=== PATIENT | male | born 1970 | race Caucasian/White ===

== ENCOUNTER 2017-04-16 14:33 | Emergency (ER) | payer SELFPAY ==
[2017-04-16 14:45] VITALS: BP 138/94; PULSE 100; RESP 16; TEMP 98.1; O2SAT 97
--- NOTE | 2017-04-16 14:58 | EDPHY ---
H & P Stated Complaint: shiela pt new to [facility] wants meds Time Seen by Provider: 04/16/17 14:57 HPI/ROS: CHIEF COMPLAINT: Requesting referral to outpatient psychiatric care HISTORY OF PRESENT ILLNESS: The patient presents to the emergency department requesting referral to outpatient psychiatric care. The patient has newly arrived in the ED state from [place]. The patient is currently on medications for schizoaffective disorder and bipolar mood disorder. The patient denies suicidal or homicidal ideation. The patient is currently homeless. The patient is currently traveling to [place]. The patient also denies acute complaints of fever, cough or congestion. He did have an episode of vomiting 2 days ago. REVIEW OF SYSTEMS: A comprehensive 10 point review of systems is otherwise negative aside from elements mentioned in the history of present illness. Source: Patient Exam Limitations: No limitations - Personal History Current Tetanus/Diphtheria Vaccine: Unsure Current Tetanus Diphtheria and Acellular Pertussis (TDAP): Unsure - Medical/Surgical History Hx Asthma: No Hx Chronic Respiratory Disease: No Hx Diabetes: No Hx Cardiac Disease: No Hx Renal Disease: No Hx Cirrhosis: No Hx Alcoholism: No Hx HIV/AIDS: No Hx Splenectomy or Spleen Trauma: No Other PMH: bipolar depression schizophrenia - Social History Smoking Status: Never smoked - Physical Exam Exam: General Appearance: Alert, no distress Eyes: Pupils equal and round no pallor or injection ENT, Mouth: Mucous membranes moist Respiratory: There are no retractions, lungs are clear to auscultation Cardiovascular: Regular rate and rhythm Gastrointestinal: Nontender, normal bowel sounds Neurological: A&O, normal motor function, normal sensory exam, normal cranial nerves Skin: Warm and dry, no rashes Musculoskeletal: Neck is supple nontender Extremities: symmetrical, full range of motion Psychiatric: Alert and oriented x3, patient reports symptoms of chronic depression. The patient denies suicidal/homicidal ideation. Constitutional: Initial Vital Signs Temperature (C) 36.7 C 04/16/17 14:42 Heart Rate 100 04/16/17 14:42 Respiratory Rate 16 04/16/17 14:42 Blood Pressure 138/94 H 04/16/17 14:42 O2 Sat (%) 97 04/16/17 14:42 O2 Delivery Mode Room Air Medical Decision Making ED Course/Re-evaluation: The patient does not meet criteria for 72 hour mental health hold. The patient currently has a several week supply of his regular psychiatric medications which include clozaril. The patient would like to go to the walk-in clinic at [facility]. We have contacted [facility] in are able to see him this afternoon. The patient will be transferred there via taxi cab. Differential Diagnosis: Differential diagnosis considered includes suicidal ideation, psychosis, schizophrenia, depression Departure - Departure Disposition: Home, Routine, Self-Care Clinical Impression: Schizophrenia Condition: Good Instructions: Schizophrenia (ED) Additional Instructions: 1. Please follow-up with the mental health resources provided in the ED today. 2. [facility] does operate a 24/ psychiatric crisis unit located at [address] [place] [address]. The telephone number for the 24 hour crisis center is [phone]. 3. Please return to the ED if you are feeling suicidal, having thoughts of harming yourself/others or should you feel unsafe or have worsening symptoms.
== END 2017-04-16 15:47 | disposition home or self-care (01) ==
DX: F20.9 Schizophrenia, unspecified (principal); F31.9 Bipolar disorder, unspecified

== ENCOUNTER 2017-04-19 10:27 | Inpatient (IN) | payer OTHER, MEDICAID ==
[2017-04-19 11:01] LABS: % IMMATURE GRANULYOCYTES 0.3 % (0.0-1.1); ABSOLUTE IMMATURE GRANULOCYTES 0.04 10^3/uL (0.00-0.10); ADD DIFF? NO; ADD MORPH? NO; ADD SCAN? NO; ATYPICAL LYMPHOCYTE FLAG 0 (0-99); FRAGMENT RBC FLAG 0 (0-99); HEMATOCRIT 42.7 % (40.0-51.0); HEMOGLOBIN 15.1 g/dL (13.7-17.5); LEFT SHIFT FLG 0 (0-99); LIPEMIA HEMOLYSIS FLAG 90 (0-99); MEAN CELL HEMOGLOBIN 30.5 pg (27.9-34.1); MEAN CELL HEMOGLOBIN CONCENTR. 35.4 g/dL (32.4-36.7); MEAN CELL VOLUME 86.3 fL (81.5-99.8); MEAN PLATELET VOLUME 9.2 fL (8.7-11.7); PLATELET CLUMPS FLAG 0 (0-99); PLATELET COUNT 253 10^3/uL (150-400); RED BLOOD CELL COUNT 4.95 10^6/uL (4.40-6.38); RED CELL DISTRIBUTION WIDTH 12.4 % (11.5-15.2)
[2017-04-19 11:23] LABS: ANION GAP 19 mEq/L (8-16); CALCIUM 9.9 mg/dL (8.5-10.4); CARBON DIOXIDE 15 mEq/l (22-31); CHLORIDE 105 mEq/L (97-110); CREATININE 0.9 mg/dL (0.7-1.3); ETHANOL SERUM < 10 mg/dL (0-10); GLOMERULAR FILTRATION RATE > 60; GLUCOSE 113 mg/dL (70-100); POTASSIUM 3.7 mEq/L (3.5-5.2); SODIUM 139 mEq/L (134-144)
[2017-04-19 12:13] LABS: SALICYLATE < 1.0 mg/dL (2.0-20.0)
--- NOTE | 2017-04-19 13:06 | EDPHY ---
H & P Stated Complaint: M1 - Personal History Current Tetanus/Diphtheria Vaccine: Unsure Current Tetanus Diphtheria and Acellular Pertussis (TDAP): Unsure - Medical/Surgical History Hx Asthma: No Hx Chronic Respiratory Disease: No Hx Diabetes: No Hx Cardiac Disease: No Hx Renal Disease: No Hx Cirrhosis: No Hx Alcoholism: No Hx HIV/AIDS: No Hx Splenectomy or Spleen Trauma: No Other PMH: bipolar depression schizophrenia - Social History Smoking Status: Never smoked Time Seen by Provider: 04/19/17 10:29 HPI/ROS: Chief complaint: Mental health hold History of present illness: This is a 46-year-old male brought to the emergency department by police with placed him on a mental health hold for suicidal ideation being gravely disabled. According to the hold patient was found on the ground, when talking with police he asked if they would kill him. Further police were concerned he was unable to care for his basic needs. On my evaluation he does state he has had thoughts of killing himself. No specific plan. He denies homicidal ideation. He denies illness or injury. Review of systems: A 10 point review of systems was obtained and other than described above was negative (Moris Bailey) Constitutional: Initial Vital Signs Temperature (C) 36.6 C 04/19/17 10:27 Heart Rate 102 H 04/19/17 10:27 Respiratory Rate 20 04/19/17 10:27 Blood Pressure 150/92 H 04/19/17 10:27 O2 Sat (%) 97 04/19/17 10:27 O2 Delivery Mode Room Air Allergies/Adverse Reactions: No Known Allergies Allergy (Unverified 04/19/17 10:49) Home Medications: Medication Instructions Recorded Clozaril (*) 04/19/17 Zoloft 50mg (*) 04/19/17 Medical Decision Making ED Course/Re-evaluation: Patient seen under the supervision of my secondary supervising physician Dr. Guy Harris. Patient is brought to the emergency department by police on a mental health hold. He is medically evaluated, bicarbonate is low, he is given something to eat and drink, bicarb is rechecked and improving. He is medically cleared for psychiatric evaluation. This is pending at time of dictation. Care of patient is turned over to Dr. Luis Eden at end of shift. (Moris Bailey ) 8:15 p.m. patient accepted at [address] Sapp. Transfer paperwork completed. (Luis Eden) Differential Diagnosis: Included but not limited to depression, bipolar, schizophrenia, substance abuse (Moris Bailey) - Data Points Laboratory Results: Laboratory Results 04/19/17 10:53 04/19/17 15:10 04/19/17 04/19/17 04/19/17 15:10 12:05 10:53 WBC RBC Hgb Hct MCV MCH MCHC RDW Plt Count MPV Neut % (Auto) Lymph % (Auto) Gladwin % (Auto) Eos % (Auto) Baso % (Auto) Nucleat RBC Rel Count Absolute Neuts (auto) Absolute Lymphs (auto) Absolute Monos (auto) Absolute Eos (auto) Absolute Basos (auto) Absolute Nucleated RBC Immature Gran % Immature Gran # Sodium 139 mEq/L mEq/L (134-144) Potassium 3.6 mEq/L mEq/L (3.5-5.2) Chloride 109 mEq/L mEq/L (97-110) Carbon Dioxide 17 mEq/l L mEq/l (22-31) Anion Gap 13 mEq/L mEq/L (8-16) BUN 18 mg/dL mg/dL (7-23) Creatinine 0.8 mg/dL mg/dL (0.7-1.3) Estimated GFR > 60 Glucose 82 mg/dL mg/dL (70-100) Calcium 8.4 mg/dL L D mg/dL (8.5-10.4) Salicylates < 1.0 mg/dL L mg/dL (2.0-20.0) Urine Opiates Screen NEGATIVE (NEGATIVE) Acetaminophen < 10 mcg/mL L mcg/mL (10.0-30.0) Urine Barbiturates NEGATIVE (NEGATIVE) Ur Phencyclidine Scrn NEGATIVE (NEGATIVE) Ur Amphetamine Screen NEGATIVE (NEGATIVE) U Benzodiazepines Scrn NON-NEGATIVE H (NEGATIVE) Urine Cocaine Screen NEGATIVE (NEGATIVE) U Marijuana (THC) Screen NON-NEGATIVE H (NEGATIVE) Ethyl Alcohol 04/19/17 04/19/17 10:53 10:53 WBC 11.72 10^3/uL H 10^3/uL (3.80-9.50) RBC 4.95 10^6/uL 10^6/uL (4.40-6.38) Hgb 15.1 g/dL g/dL (13.7-17.5) Hct 42.7 % % (40.0-51.0) MCV 86.3 fL fL (81.5-99.8) MCH 30.5 pg pg (27.9-34.1) MCHC 35.4 g/dL g/dL (32.4-36.7) RDW 12.4 % % (11.5-15.2) Plt Count 253 10^3/uL 10^3/uL (150-400) MPV 9.2 fL fL (8.7-11.7) Neut % (Auto) 81.4 % H % (39.3-74.2) Lymph % (Auto) 10.6 % L % (15.0-45.0) Gladwin % (Auto) 7.3 % % (4.5-13.0) Eos % (Auto) 0.0 % L % (0.6-7.6) Baso % (Auto) 0.4 % % (0.3-1.7) Nucleat RBC Rel Count 0.0 % % (0.0-0.2) Absolute Neuts (auto) 9.54 10^3/uL H 10^3/uL (1.70-6.50) Absolute Lymphs (auto) 1.24 10^3/uL 10^3/uL (1.00-3.00) Absolute Monos (auto) 0.85 10^3/uL H 10^3/uL (0.30-0.80) Absolute Eos (auto) 0.00 10^3/uL L 10^3/uL (0.03-0.40) Absolute Basos (auto) 0.05 10^3/uL 10^3/uL (0.02-0.10) Absolute Nucleated RBC 0.00 10^3/uL 10^3/uL (0-0.01) Immature Gran % 0.3 % % (0.0-1.1) Immature Gran # 0.04 10^3/uL 10^3/uL (0.00-0.10) Sodium 139 mEq/L mEq/L (134-144) Potassium 3.7 mEq/L mEq/L (3.5-5.2) Chloride 105 mEq/L mEq/L (97-110) Carbon Dioxide 15 mEq/l L mEq/l (22-31) Anion Gap 19 mEq/L H mEq/L (8-16) BUN 19 mg/dL mg/dL (7-23) Creatinine 0.9 mg/dL mg/dL (0.7-1.3) Estimated GFR > 60 Glucose 113 mg/dL H mg/dL (70-100) Calcium 9.9 mg/dL mg/dL (8.5-10.4) Salicylates Urine Opiates Screen Acetaminophen Urine Barbiturates Ur Phencyclidine Scrn Ur Amphetamine Screen U Benzodiazepines Scrn Urine Cocaine Screen U Marijuana (THC) Screen Ethyl Alcohol < 10 mg/dL mg/dL (0-10) Medications Given: Discontinued Medications Sodium Chloride (Ns) 1,000 mls @ 0 mls/hr IV ONCE ONE PRN Reason: Wide Open Stop: 04/19/17 13:31 Last Admin: 04/19/17 13:41 Dose: 1,000 mls Olanzapine (Olanzapine) 10 mg PO ONCE ONE Stop: 04/19/17 13:12 Last Admin: 04/19/17 13:41 Dose: 10 mg Departure - Departure Disposition: [facility] IP Clinical Impression: Suicidal ideation Condition: Fair Referrals: NONE *PRIMARY CARE P,. [Primary Care Provider] - As per Instructions
[2017-04-19] MEDS ORDERED: OLANZapine 10 MG TAB PO ONE (13:11)
[2017-04-19] MEDS ORDERED: NS 1,000 ML IV ONE (13:30)
[2017-04-19 15:38] LABS: ANION GAP 13 mEq/L (8-16); CALCIUM 8.4 mg/dL (8.5-10.4); CARBON DIOXIDE 17 mEq/l (22-31); CHLORIDE 109 mEq/L (97-110); CREATININE 0.8 mg/dL (0.7-1.3); GLOMERULAR FILTRATION RATE > 60; GLUCOSE 82 mg/dL (70-100); POTASSIUM 3.6 mEq/L (3.5-5.2); SODIUM 139 mEq/L (134-144)
[2017-04-19] MEDS ORDERED: ACETAMINOPHEN 325 MG TAB PO PRN (22:42)
[2017-04-19] MEDS ORDERED: MAGNESIUM HYDROXIDE 30 ML UDCUP PO PRN (22:42)
[2017-04-19] MEDS ORDERED: NICOTINE POLACRILEX 2 MG GUM B PRN (22:44)
[2017-04-19] MEDS ORDERED: OLANZapine DISINTEGR 10 MG TAB PO PRN (22:48)
--- NOTE | 2017-04-20 14:56 | GCON ---
[f rep st] CONSULTATION INTERNAL MEDICINE CONSULTATION DATE OF CONSULTATION: 04/20/2017 REASON FOR CONSULTATION: Medical clearance for inpatient psychiatric stay. HISTORY OF PRESENT ILLNESS: This is a 46-year-old male who presented to the emergency department ye sterday by police, who had placed him on a mental health hold for suicidal ideation. He was then tr ansferred to [facility]. The patient denies any medical problems. He does complain of a lit tle bit of foot pain. He denies any chest pain or shortness of breath. PAST MEDICAL HISTORY: None. REVIEW OF SYSTEMS: A 10-point review of systems was obtained and was negative. SOCIAL HISTORY: Smokes marijuana. No tobacco. FAMILY HISTORY: Reviewed and not contributory. PHYSICAL EXAMINATION: VITAL SIGNS: Afebrile. Blood pressure is 115/58, heart rate 69, oxygen satu ration 98% on room air. GENERAL: The patient is well-developed, no apparent distress. HEENT: Non icteric sclerae. Extraocular movements intact. Moist mucous membranes. NECK: Supple. No thyrome rosita. LUNGS: Good effort. Clear to auscultation bilaterally. CARDIOVASCULAR: Regular rate and r hythm. No murmurs or gallops. ABDOMEN: Positive bowel sounds. Soft, nontender, nondistended. No hepatosplenomegaly. EXTREMITIES: Feet look completely normal. There is no erythema, tenderness o r deformities. NEUROLOGIC: Alert and oriented x3. Moving all 4 extremities equally. LABS: White count slightly elevated at 11 yesterday. Chemistry is essentially normal. ASSESSMENT: A 46-year-old male with no medical problems, presenting to [facility] for suicid al ideation. PLAN: Patient is medically cleared to participate in psychiatric care at [address] [place] [address]. /[id number]/MODL
--- NOTE | 2017-04-20 21:11 | SOAPPROG ---
SOAP Progress Note Assessment/Plan: 04/20/17 16:10 Patient chart and history reviewed, patient interviewed and evaluated. pls refer to Behavioral Health admission dictation for details. Objective: Vital Signs Temp Pulse Resp BP Pulse Ox 36.9 C 69 15 115/58 L 98 04/20/17 06:27 04/20/17 06:27 04/20/17 06:27 04/20/17 06:27 04/20/17 06:27 - Pending Discharge Pending Discharge Within 24 Hours: No Pending Discharge Within 48 Hours: No ICD10 Worksheet Patient Problems: Problems Problem Status Onset Cannabis use disorder, severe, dependence Acute Psychosis Acute Schizophrenia Acute Suicidal ideation Acute
[2017-04-20] MEDS ORDERED: OLANZapine 5 MG TAB PO SCH (21:15)
[2017-04-20] MEDS: ACETAMINOPHEN 500 MG TAB PO PRN (21:15)
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
[2017-04-21] MEDS: LORazepam 0.5 MG TAB PO PRN ×2 (11:04→20:16)
[2017-04-21] MEDS ORDERED: OLANZapine DISINTEGR 10 MG TAB PO PRN ×2 (15:28→20:15)
--- NOTE | 2017-04-21 15:36 | SOAPPROG ---
SABRINA Progress Note Assessment/Plan: Assessment: x 04/21/17 15:29 Plan: 1. Start patient on Invega 3mg PO daily for psychosis. He was previously taking Clozaril, but given that he is traveling and homeless, does not warrant the risk of prescribing this med if patient won't have reliable way to get bloodwork checked. He agrees to PO Invega which he has taken in past and says was helpful. Plan will be to convert to Invega Sustenna eventually as more appropriate way to maintain him as outpatient with less risk than Clozaril. Patient does not give a sufficient history to warrant concluding that he has failed all other forms of antipsychotic tx. 2. Will also restart patient on Zoloft which he says he was taking up until time he was admitted to [facility]. He says he left his pill bottle at [facility] in [place], and doesn't know the dose of Zoloft he was taking. Will try to confirm and increase dose if needed. 3. Despite having a stable residential milieu in [place] for the past 6 years, patient says he started smoking THC about a year ago and decided he like the way it made him feel better than his psych meds, which is why he decided to travel to [place] b/c the weed was "better." Have advised patient of risks associated with use of THC which is a hallucinogen and particularly problematic for patient's with prior h/o psychosis and/or mood disorders. He says he still intends to smoke THC and doesn't want to go back to [place] b/c it's "illegal" and he 's tired of sneaking around and hiding his THC use. 4. Recommend patient return to [place] where he has stable environment and established mental health services. But he refuses. Request CC to provide him with in-state resources. Subjective: Met with patient, reviewed chart and disussed with staff. Patient reports long h /o mental health tx. His first psych admission was at [facility] in [place] in 2003. He reports being on court ordered medications at that time. Since then he lived in apartment in [place], [place] and participated in [facility] program of daily group therapy and med management. He transitioned from that to a residential treatment facility, [facility], in [place], [place] where he' s lived for past 6 years. He says about a year ago he started smoking THC and thought it was "really good for my head and everything." He noticed that he felt "much better" on THC than on his psych meds. He was "able to play my guitar " and felt he had more energy on THC. He says Clozaril made him feel like a zombie. So he decided to travel to [place] b/c he heard it "was really cool" and "pot was legal there." He stopped in [place] b/c he was feeling sick on the bus and had good memories of living in [place] in the past. He says he likes [place] b/c the "pot is really good here" not like [place]. He thinks he'll stay in [place] b/c of the "good vibes" and the "really good weed." He denies any current AH/VH, there are no signs of paranoia or delusions and no evidence of responding to int/ext stim. He denies any SI/HI. MD discussed options for psych meds and suggested starting Invega and eventually getting on WHEAT Sustenna. Patient said he's taken Invega in the past, and says it was a "good medicine." He is very ambivalent about his desire to remain on psych meds, but says he will take Invega and Zoloft which he was on prior to coming to [place]. Objective: Vital Signs Temp Pulse Resp BP Pulse Ox 36.4 C 68 18 110/69 99 04/21/17 06:38 04/21/17 06:38 04/21/17 06:38 04/21/17 06:38 04/21/17 06:38 MSE: Calm, cooperative, polite. Affect: Cheerful Mood: "Fine" TP: Circumstantial TC: Denies any AH/VH, SI/HI - Time Spent With Patient Time Spent With Patient: 25" - Pending Discharge Pending Discharge Within 24 Hours: No ICD10 Worksheet Patient Problems: Problems Problem Status Onset Cannabis use disorder, severe, dependence Acute Psychosis Acute Suicidal ideation Acute - ICD10 Problem Qualifiers (1) Psychosis Qualifiers: Psychosis type: unspecified psychosis type Schizoaffective disorder type: S Schizophrenia type: S Qualified Code(s): F29 - Unspecified psychosis not due to a substance or known physiological condition (2) Cannabis use disorder, severe, dependence
[2017-04-21] MEDS: OLANZapine DISINTEGR 5 MG TAB PO PRN (20:17)
[2017-04-22] MEDS: PALIPERIDONE 3 MG TAB.ER PO SCH (08:38)
[2017-04-22] MEDS ORDERED: SERTRALINE HCL 25 MG TAB PO SCH (09:00)
--- NOTE | 2017-04-22 14:50 | SOAPPROG ---
SABRINA Progress Note Assessment/Plan: Assessment: x 04/21/17 15:29 Plan: 1. Start patient on Invega 3mg PO daily for psychosis. He was previously taking Clozaril, but given that he is traveling and homeless, does not warrant the risk of prescribing this med if patient won't have reliable way to get bloodwork checked. He agrees to PO Invega which he has taken in past and says was helpful. Plan will be to convert to Invega Sustenna eventually as more appropriate way to maintain him as outpatient with less risk than Clozaril. Patient does not give a sufficient history to warrant concluding that he has failed all other forms of antipsychotic tx. 2. Will also restart patient on Zoloft which he says he was taking up until time he was admitted to [facility]. He says he left his pill bottle at [facility] in [place], and doesn't know the dose of Zoloft he was taking. Will try to confirm and increase dose if needed. 3. Despite having a stable residential milieu in [place] for the past 6 years, patient says he started smoking THC about a year ago and decided he like the way it made him feel better than his psych meds, which is why he decided to travel to [place] b/c the weed was "better." Have advised patient of risks associated with use of THC which is a hallucinogen and particularly problematic for patient's with prior h/o psychosis and/or mood disorders. He says he still intends to smoke THC and doesn't want to go back to [place] b/c it's "illegal" and he 's tired of sneaking around and hiding his THC use. 4. Recommend patient return to [place] where he has stable environment and established mental health services. But he refuses. Request CC to provide him with in-state resources. 04/22/17 14:46 Plan: 1. Continue on Invega. Patient says he had no SE's from first dose this AM. 2. Will increase Zoloft to 100mg daily. Patient says he was taking 150mg daily and did not miss any doses prior to his admission in hospital. He may be experiencing some w/d sxs from starting at a much lower dose. 3. Patient says he was taking xanax in [place] and that he brought a bottle with him on bus. He isn't very clear about when his last dose was. He thinks it might have been on 04/16/17 and he doesn't actually remember how many tabs he was taking. 4. Will start a CIWA for benzo w/d just to be cautious. 5. Place patient on [facility]. Subjective: Met with patient and discussed with staff. Patient says he still doesn't feel well. He says his hands are "clammy" and he is worried about his lungs b/c he keeps coughing. Patient says since starting the Invega he feels that his brain is "dulled down" but "in a good way." Patient says he isn't worried "about anything" right now, though he just told MD he was worried about feeling "not quite right." He says he is looking forward to vegetarian lasagna for dinner. He continues to isolate in his room and stay in bed most of the time. He denies any AH/VH, and denies any SI/HI. Objective: Vital Signs Temp Pulse Resp BP Pulse Ox 36.5 C 68 14 107/62 97 04/22/17 06:00 04/22/17 06:00 04/22/17 06:00 04/22/17 06:00 04/22/17 06:00 MSE: Sitting up in bed wearing pajama top and bottom. Affect: Anxious Mood: "Fine" TP: Tangential TC: Denies any AH/VH, SI/HI Insight/Judgment: Poor/ Impaired - Time Spent With Patient Time Spent With Patient: 20" - Pending Discharge Pending Discharge Within 24 Hours: No ICD10 Worksheet Patient Problems: Problems Problem Status Onset Cannabis use disorder, severe, dependence Acute Psychosis Acute Schizophrenia Acute Suicidal ideation Acute - ICD10 Problem Qualifiers (1) Psychosis Qualifiers: Psychosis type: schizophrenia Schizoaffective disorder type: S Schizophrenia type: paranoid schizophrenia Qualified Code(s): F20.0 - Paranoid schizophrenia (2) Cannabis use disorder, severe, dependence (3) Schizophrenia Qualifiers: Schizophrenia type: paranoid schizophrenia Qualified Code(s): F20.0 - Paranoid schizophrenia
[2017-04-22] MEDS ORDERED: PROMETHAZINE HCL 25 MG SUPPR PR PRN (14:56)
[2017-04-22] MEDS ORDERED: PROMETHAZINE HCL 25 MG TAB PO PRN (14:56)
[2017-04-22] MEDS ORDERED: IBUPROFEN 200 MG TAB PO PRN (14:56)
[2017-04-22] MEDS ORDERED: chlordiazePOXIDE 25 MG CAP PO PRN (14:56)
[2017-04-23] MEDS: LORazepam 0.5 MG TAB PO PRN ×3 (01:37→20:19)
[2017-04-23] MEDS: SERTRALINE HCL 25 MG TAB PO SCH (10:16)
[2017-04-23] MEDS: MULTIVITAMINS 1 EACH TAB PO SCH (10:16)
[2017-04-23] MEDS: PALIPERIDONE 3 MG TAB.ER PO SCH (10:18)
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
[2017-04-24] MEDS: MULTIVITAMINS 1 EACH TAB PO SCH (09:25)
[2017-04-24] MEDS: PALIPERIDONE 3 MG TAB.ER PO SCH (09:25)
[2017-04-24] MEDS: SERTRALINE HCL 25 MG TAB PO SCH (09:25)
--- NOTE | 2017-04-24 13:09 | SOAPPROG ---
SABRINA Progress Note Assessment/Plan: Assessment: x 04/21/17 15:29 Plan: 1. Start patient on Invega 3mg PO daily for psychosis. He was previously taking Clozaril, but given that he is traveling and homeless, does not warrant the risk of prescribing this med if patient won't have reliable way to get bloodwork checked. He agrees to PO Invega which he has taken in past and says was helpful. Plan will be to convert to Invega Sustenna eventually as more appropriate way to maintain him as outpatient with less risk than Clozaril. Patient does not give a sufficient history to warrant concluding that he has failed all other forms of antipsychotic tx. 2. Will also restart patient on Zoloft which he says he was taking up until time he was admitted to [facility]. He says he left his pill bottle at [facility] in [place], and doesn't know the dose of Zoloft he was taking. Will try to confirm and increase dose if needed. 3. Despite having a stable residential milieu in [place] for the past 6 years, patient says he started smoking THC about a year ago and decided he like the way it made him feel better than his psych meds, which is why he decided to travel to [place] b/c the weed was "better." Have advised patient of risks associated with use of THC which is a hallucinogen and particularly problematic for patient's with prior h/o psychosis and/or mood disorders. He says he still intends to smoke THC and doesn't want to go back to [place] b/c it's "illegal" and he 's tired of sneaking around and hiding his THC use. 4. Recommend patient return to [place] where he has stable environment and established mental health services. But he refuses. Request CC to provide him with in-state resources. 04/22/17 14:46 Plan: 1. Continue on Invega. Patient says he had no SE's from first dose this AM. 2. Will increase Zoloft to 100mg daily. Patient says he was taking 150mg daily and did not miss any doses prior to his admission in hospital. He may be experiencing some w/d sxs from starting at a much lower dose. 3. Patient says he was taking xanax in [place] and that he brought a bottle with him on bus. He isn't very clear about when his last dose was. He thinks it might have been on 04/16/17 and he doesn't actually remember how many tabs he was taking. 4. Will start a CIWA for benzo w/d just to be cautious. 5. Place patient on STC. 04/23/17 12:22 Plan: 1. Increase Invega to 6mg 2. Ciwa was 8 this AM (for agitation and anxiety for yelling at nurse). VSS. Patient denies any physical sxs of w/d. 04/24/17 13:05 Plan: 1. CCM - patient reprorts feeling "much better" today. He looks calmer and presents less agitated and restless. 2. Denies any sxs of w/d and VSS. Subjective: Met with patient and discussed with staff. Patient was sitting up in bed wearing pajamas. He appeared less agitated and restless than yesterday, more calm and less fidgeting. He reports "I got better sleep last night" and "I feel really good today." He says that "yesterday during the day everything seemed to turn around." When MD asks what happened, patient says that staff were "really cool" and asked him if there was "anything they could do to help me." He says this made him feel "less like a prisoner of war and more like a human being." Patient denies any AH/VH, seems less internally preoccupied and denies any SI/ HI. Objective: Vital Signs Temp Pulse Resp BP Pulse Ox 36.4 C 74 12 125/83 H 95 04/24/17 08:55 04/24/17 11:59 04/24/17 11:59 04/24/17 11:59 04/24/17 11:59 MSE: calm, cooperative, sitting up in bed. Affect: euthymic Mood: "Much better " TP: more linear, coherent and organized TC: Denies any AH/VH, no evidence of paranoia or delusions, denies any SI/HI - Time Spent With Patient Time Spent With Patient: 20" - Pending Discharge Pending Discharge Within 24 Hours: No ICD10 Worksheet Patient Problems: Problems Problem Status Onset Suicidal ideation Acute Psychosis Acute Cannabis use disorder, severe, dependence Acute Schizophrenia Acute - ICD10 Problem Qualifiers (1) Psychosis Qualifiers: Psychosis type: schizophrenia Schizoaffective disorder type: S Schizophrenia type: paranoid schizophrenia Qualified Code(s): F20.0 - Paranoid schizophrenia (2) Cannabis use disorder, severe, dependence (3) Schizophrenia Qualifiers: Schizophrenia type: paranoid schizophrenia Qualified Code(s): F20.0 - Paranoid schizophrenia
[2017-04-25] MEDS: LORazepam 0.5 MG TAB PO PRN ×4 (00:07→18:27)
[2017-04-25] MEDS: ACETAMINOPHEN 500 MG TAB PO PRN (00:12)
[2017-04-25] MEDS: OLANZapine DISINTEGR 5 MG TAB PO PRN (00:13)
[2017-04-25] MEDS: SERTRALINE HCL 25 MG TAB PO SCH (09:02)
[2017-04-25] MEDS: MULTIVITAMINS 1 EACH TAB PO SCH (09:03)
[2017-04-25] MEDS: PALIPERIDONE 3 MG TAB.ER PO SCH (09:03)
--- NOTE | 2017-04-25 13:19 | SOAPPROG ---
SABRINA Progress Note Assessment/Plan: Assessment: x 04/21/17 15:29 Plan: 1. Start patient on Invega 3mg PO daily for psychosis. He was previously taking Clozaril, but given that he is traveling and homeless, does not warrant the risk of prescribing this med if patient won't have reliable way to get bloodwork checked. He agrees to PO Invega which he has taken in past and says was helpful. Plan will be to convert to Invega Sustenna eventually as more appropriate way to maintain him as outpatient with less risk than Clozaril. Patient does not give a sufficient history to warrant concluding that he has failed all other forms of antipsychotic tx. 2. Will also restart patient on Zoloft which he says he was taking up until time he was admitted to [facility]. He says he left his pill bottle at [facility] in [place], and doesn't know the dose of Zoloft he was taking. Will try to confirm and increase dose if needed. 3. Despite having a stable residential milieu in [place] for the past 6 years, patient says he started smoking THC about a year ago and decided he like the way it made him feel better than his psych meds, which is why he decided to travel to [place] b/c the weed was "better." Have advised patient of risks associated with use of THC which is a hallucinogen and particularly problematic for patient's with prior h/o psychosis and/or mood disorders. He says he still intends to smoke THC and doesn't want to go back to [place] b/c it's "illegal" and he 's tired of sneaking around and hiding his THC use. 4. Recommend patient return to [place] where he has stable environment and established mental health services. But he refuses. Request CC to provide him with in-state resources. 04/22/17 14:46 Plan: 1. Continue on Invega. Patient says he had no SE's from first dose this AM. 2. Will increase Zoloft to 100mg daily. Patient says he was taking 150mg daily and did not miss any doses prior to his admission in hospital. He may be experiencing some w/d sxs from starting at a much lower dose. 3. Patient says he was taking xanax in [place] and that he brought a bottle with him on bus. He isn't very clear about when his last dose was. He thinks it might have been on 04/16/17 and he doesn't actually remember how many tabs he was taking. 4. Will start a CIWA for benzo w/d just to be cautious. 5. Place patient on STC. 04/23/17 12:22 Plan: 1. Increase Invega to 6mg 2. Ciwa was 8 this AM (for agitation and anxiety for yelling at nurse). VSS. Patient denies any physical sxs of w/d. 04/24/17 13:05 Plan: 1. CCM - patient reprorts feeling "much better" today. He looks calmer and presents less agitated and restless. 2. Denies any sxs of w/d and VSS. 04/25/17 13:16 Plan: 1. Will d/c CIWA as patient has not been scoring and VS remain stable. 2. Continue Invega 6mg for psychosis 3. Will start Zoloft for mood since patient has taken this antidepressant in past and says it was helpful Subjective: Met with patient and discussed with staff. Patient is very disorganized and illogical today. The first thing he says upon greeting MD is "do you know why Tacho Hadley killed that hippromeo?" Patient says his thoughts seem "sped up" today, and says he doesn't like it when the medicine slows down his thoughts, because, "I like it when my thoughts flow freely." Patient asks MD if he can get some "Ganja treats" and asks if MD will "smoke a bowl with me?" Patient denies any AH/VH, even though he seems very internally preoccupied. He also denies any SI/HI. Objective: Vital Signs Temp Pulse Resp BP Pulse Ox 36.7 C 59 L 18 116/70 98 04/25/17 06:00 04/25/17 06:00 04/25/17 06:00 04/25/17 06:00 04/25/17 06:00 MSE: Lying down in bed, wearing pajama. Affect: Labile, elevated Mood: "Good" TP: Disorganized, Loose TC: Denies AH/VH, evidence of delusions and internal preoccupation, denies any SI/HI Insight/Judgment: Impaired - Time Spent With Patient Time Spent With Patient: 20" - Pending Discharge Pending Discharge Within 24 Hours: No ICD10 Worksheet Patient Problems: Problems Problem Status Onset Cannabis use disorder, severe, dependence Acute Psychosis Acute Schizophrenia Acute Suicidal ideation Acute - ICD10 Problem Qualifiers (1) Psychosis Qualifiers: Psychosis type: schizophrenia Schizoaffective disorder type: S Schizophrenia type: paranoid schizophrenia Qualified Code(s): F20.0 - Paranoid schizophrenia (2) Cannabis use disorder, severe, dependence (3) Schizophrenia Qualifiers: Schizophrenia type: paranoid schizophrenia Qualified Code(s): F20.0 - Paranoid schizophrenia
[2017-04-26] MEDS: MULTIVITAMINS 1 EACH TAB PO SCH (08:41)
[2017-04-26] MEDS: SERTRALINE HCL 25 MG TAB PO SCH (08:42)
[2017-04-26] MEDS: PALIPERIDONE 3 MG TAB.ER PO SCH (08:42)
[2017-04-26] MEDS: LORazepam 0.5 MG TAB PO PRN (10:57)
--- NOTE | 2017-04-26 15:46 | SOAPPROG ---
SOAP Progress Note Assessment/Plan: Assessment: 46yo w/SZP in resid tx in [place] and on Clozaril/Zoloft for 6yr until traveled to [place] 2 wk ago for legal THC, now off meds and decompensated. started on Invega w/ plan for Sustenna b/c unclear f/u and monitoring to be on Clozapine. 04/26/17 15:08 slept 8.5hr. "dark mood" yesterday AM, better today. taking meds. reports no med s/e, no physical c/o. likes Invega. doesn't want clozapine and monitoring as in past. denied psychotic sxs. mood "good. sleeping "okay". nml speech rate/vol, cooperative, nml psychom activity, napping some today, inconsistently attending groups. trying to exercise some today b/c noted schroeder in his potato soup and doesn't usually eat meat but doesn't want change to vegetarian diet. asks to shave. denies any thoughts of self harm or harm to others. i/j fair. plan: cont invega 6mg, plan for sustenna. may need incr invega to 9mg. cont zoloft Objective: Vital Signs Temp Pulse Resp BP Pulse Ox 36.8 C 92 12 126/65 H 96 04/26/17 06:00 04/26/17 06:00 04/26/17 06:00 04/26/17 06:00 04/26/17 06:00 - Time Spent With Patient Time Spent With Patient: 15min - Pending Discharge Pending Discharge Within 24 Hours: No Pending Discharge Within 48 Hours: No ICD10 Worksheet Patient Problems: Problems Problem Status Onset Cannabis use disorder, severe, dependence Acute Psychosis Acute Schizophrenia Acute Suicidal ideation Acute
[2017-04-27] MEDS: MULTIVITAMINS 1 EACH TAB PO SCH (09:27)
[2017-04-27] MEDS: PALIPERIDONE 3 MG TAB.ER PO SCH (09:27)
[2017-04-27] MEDS: SERTRALINE HCL 25 MG TAB PO SCH (09:28)
--- NOTE | 2017-04-27 23:17 | SOAPPROG ---
SOAP Progress Note Assessment/Plan: Assessment: 46yo w/SZP in resid tx in [place] and on Clozaril/Zoloft for 6yr until traveled to [place] 2 wk ago for legal THC, now off meds and decompensated. started on Invega w/ plan for Sustenna b/c unclear f/u and monitoring to be on Clozapine. 04/26/17 15:08 slept 8.5hr. "dark mood" yesterday AM, better today. taking meds. reports no med s/e, no physical c/o. likes Invega. doesn't want clozapine and monitoring as in past. denied psychotic sxs. mood "good. sleeping "okay". nml speech rate/vol, cooperative, nml psychom activity, napping some today, inconsistently attending groups. trying to exercise some today b/c noted schroeder in his potato soup and doesn't usually eat meat but doesn't want change to vegetarian diet. asks to shave. denies any thoughts of self harm or harm to others. i/j fair. plan: cont invega 6mg, plan for sustenna. may need incr invega to 9mg. cont zoloft okay d/c SP so pt can shave w/supervision 04/27/17 18:17 slept 8.5hr. comfortably drinking coffee in pjs watching tv this am. reportedly indicated to staff he was comfortable in hosp b/c "this is my home now". had some illogical responses to questions. pt reports not feeling good today. "tired". wants "to smoke a bowl" now and he will be "less grouchy". clearly states he does NOT want to return to [place]. "I was in a bad place surrounded by bad people there...here too". regarding goals for hosp/treatment, pt responds that he prefers "a merciful here"... then rather his goal is "to take it in stride, try not to be judgmental or think too much. tried to ask some general personal questions and asked me to rather leave him and "go have a good day". "I don't know what y'all want from me...I should've a long time ago...I'm a tortured man". denied having any plan/intent to harm self. +passive SI. denied thoughts to harm others. no evid of resp to internal stim, and denied current ah/vh. laughed forcibly when concerns about THC and effects on MH expressed. "you think that's the problem?!" insists THC helps him, is not harmful, admits he did come to [place] in part b/c of THC but wanted to leave [place]. i/j impaired. not interested in attending many gps. plan: cont invega and zoloft. may need incr invega. plan IM once more stable. on [facility]. Objective: Vital Signs Temp Pulse Resp BP Pulse Ox 36.8 C 76 16 107/56 L 96 04/27/17 06:00 04/27/17 06:00 04/27/17 06:00 04/27/17 06:00 04/27/17 06:00 Medications Generic Name Dose Route Start Last Admin Trade Name Freq PRN Reason Stop Dose Admin Lorazepam 1 mg 04/23/17 12:33 04/26/17 10:57 Ativan PO 10/16/17 22:43 1 mg Q4HRS PRN ANXIETY Multivitamins 1 each 04/23/17 09:00 04/27/17 09:27 Tab-A-Aquiles PO 10/20/17 08:59 1 each DAILY JACKSON Olanzapine 5 mg 04/21/17 20:15 04/25/17 00:13 Zyprexa Zydis PO 10/18/17 20:14 5 mg Q4H PRN AGITATION/PSYCHOSIS Paliperidone 6 mg 04/23/17 12:33 04/27/17 09:27 Invega PO 10/19/17 08:59 6 mg DAILY JACKSON Sertraline HCl 100 mg 04/22/17 14:57 04/27/17 09:28 Zoloft PO 10/19/17 08:59 100 mg DAILY JACKSON - Time Spent With Patient Time Spent With Patient: 25min - Pending Discharge Pending Discharge Within 24 Hours: No Pending Discharge Within 48 Hours: No ICD10 Worksheet Patient Problems: Problems Problem Status Onset Cannabis use disorder, severe, dependence Acute Psychosis Acute Schizophrenia Acute Suicidal ideation Acute
[2017-04-28] MEDS: SERTRALINE HCL 25 MG TAB PO SCH (08:56)
[2017-04-28] MEDS: MULTIVITAMINS 1 EACH TAB PO SCH (08:56)
[2017-04-28] MEDS: PALIPERIDONE 3 MG TAB.ER PO SCH ×2 (08:57→21:17)
--- NOTE | 2017-04-28 23:57 | SOAPPROG ---
SOAP Progress Note Assessment/Plan: Assessment: 46yo w/SZP in resid tx in [place] and on Clozaril/Zoloft for 6yr until traveled to [place] 2 wk ago for legal THC, now off meds and decompensated. started on Invega w/ plan for Sustenna b/c unclear f/u and monitoring to be on Clozapine. 04/26/17 15:08 slept 8.5hr. "dark mood" yesterday AM, better today. taking meds. reports no med s/e, no physical c/o. likes Invega. doesn't want clozapine and monitoring as in past. denied psychotic sxs. mood "good. sleeping "okay". nml speech rate/vol, cooperative, nml psychom activity, napping some today, inconsistently attending groups. trying to exercise some today b/c noted schroeder in his potato soup and doesn't usually eat meat but doesn't want change to vegetarian diet. asks to shave. denies any thoughts of self harm or harm to others. i/j fair. plan: cont invega 6mg, plan for sustenna. may need incr invega to 9mg. cont zoloft okay d/c SP so pt can shave w/supervision 04/27/17 18:17 slept 8.5hr. comfortably drinking coffee in pjs watching tv this am. reportedly indicated to staff he was comfortable in hosp b/c "this is my home now". had some illogical responses to questions. pt reports not feeling good today. "tired". wants "to smoke a bowl" now and he will be "less grouchy". clearly states he does NOT want to return to [place]. "I was in a bad place surrounded by bad people there...here too". regarding goals for hosp/treatment, pt responds that he prefers "a merciful here"... then rather his goal is "to take it in stride, try not to be judgmental or think too much. tried to ask some general personal questions and asked me to rather leave him and "go have a good day". "I don't know what y'all want from me...I should've a long time ago...I'm a tortured man". denied having any plan/intent to harm self. +passive SI. denied thoughts to harm others. no evid of resp to internal stim, and denied current ah/vh. laughed forcibly when concerns about THC and effects on MH expressed. "you think that's the problem?!" insists THC helps him, is not harmful, admits he did come to [place] in part b/c of THC but wanted to leave [place]. i/j impaired. not interested in attending many gps. plan: cont invega and zoloft. may need incr invega. plan IM once more stable. on [facility]. 04/28/17 13:58 slept 9.5hr. often heard conversing with self in room loudly. isolating in room , some patients thought he was new today. kept head down during interview. low/soft vol of speech today. flattened affect , mood "disconnected...I like that, when I felt connected, I didn't like who I became". not giving any direct answers to any questions. rambling, with vague and poverty of content. didn't deny or endorse ah/vh but rambled about experiencing things differently than others, but everyone is different so each has different experiences..." "I looked around today, if this is housing in [place], I like it, it's nice here ". Consistently states he is NOT interested in returning to [place]. "I'm on my own path , something is guiding me, it's not my job to communicate with you". denies any SI or thoughts to harm others, denies depression "and when the tears flow, that's not depression, it's something deeper..." denied med s/e. PLAN: Did allow [facility] for program in [place]. discussed need to participate in milieu, start with 1 group daily (pending collateral). monitor for [place] 2 component may need behav plan cont current meds. on [facility], Objective: Vital Signs Temp Pulse Resp BP Pulse Ox 36.8 C 57 L 14 150/58 H 97 04/28/17 06:00 04/28/17 06:00 04/28/17 06:00 04/28/17 06:00 04/28/17 06:00 - Pending Discharge Pending Discharge Within 24 Hours: No Pending Discharge Within 48 Hours: No ICD10 Worksheet Patient Problems: Problems Problem Status Onset Cannabis use disorder, severe, dependence Acute Psychosis Acute Schizophrenia Acute Suicidal ideation Acute
[2017-04-29] MEDS: LORazepam 0.5 MG TAB PO PRN (01:06)
[2017-04-29] MEDS: PALIPERIDONE 3 MG TAB.ER PO SCH ×3 (11:17→20:49)
[2017-04-29] MEDS: MULTIVITAMINS 1 EACH TAB PO SCH (11:17)
[2017-04-29] MEDS: SERTRALINE HCL 25 MG TAB PO SCH (11:18)
[2017-04-30] MEDS: ACETAMINOPHEN 500 MG TAB PO PRN (04:41)
[2017-04-30] MEDS: SERTRALINE HCL 25 MG TAB PO SCH (09:22)
[2017-04-30] MEDS: PALIPERIDONE 3 MG TAB.ER PO SCH ×2 (09:22→20:34)
[2017-04-30] MEDS: MULTIVITAMINS 1 EACH TAB PO SCH (09:22)
[2017-04-30] MEDS ORDERED: [UNRECOGNIZED DRUG - OTHER] ID ONE (11:00)
--- NOTE | 2017-04-30 19:23 | SOAPPROG ---
SOAP Progress Note Assessment/Plan: Assessment: 46yo w/hx of SZP in resid tx/[facility] in [place] and on Clozaril/Zoloft for 6yr until left 2 wks ago by bus w/plan to move where THC was legal, and stopped in [place] (en route to [place]) 04/15. Psychotic and w/passive SI on admit, utox +thc. Also was off meds and decompensated. Started on Invega w/plan for Sustenna b/c unclear f/u and monitoring to be restarted on Clozapine. 04/26/17 15:08 slept 8.5hr. "dark mood" yesterday AM, better today. taking meds. reports no med s/e, no physical c/o. likes Invega. doesn't want clozapine and monitoring as in past. denied psychotic sxs. mood "good. sleeping "okay". nml speech rate/vol, cooperative, nml psychom activity, napping some today, inconsistently attending groups. trying to exercise some today b/c noted schroeder in his potato soup and doesn't usually eat meat but doesn't want change to vegetarian diet. asks to shave. denies any thoughts of self harm or harm to others. i/j fair. plan: cont invega 6mg, plan for sustenna. may need incr invega to 9mg. cont zoloft okay d/c SP so pt can shave w/supervision 04/27/17 18:17 slept 8.5hr. comfortably drinking coffee in pjs watching tv this am. reportedly indicated to staff he was comfortable in hosp b/c "this is my home now". had some illogical responses to questions. pt reports not feeling good today. "tired". wants "to smoke a bowl" now and he will be "less grouchy". clearly states he does NOT want to return to [place]. "I was in a bad place surrounded by bad people there...here too". regarding goals for hosp/treatment, pt responds that he prefers "a merciful here"... then rather his goal is "to take it in stride, try not to be judgmental or think too much. tried to ask some general personal questions and asked me to rather leave him and "go have a good day". "I don't know what y'all want from me...I should've a long time ago...I'm a tortured man". denied having any plan/intent to harm self. +passive SI. denied thoughts to harm others. no evid of resp to internal stim, and denied current ah/vh. laughed forcibly when concerns about THC and effects on MH expressed. "you think that's the problem?!" insists THC helps him, is not harmful, admits he did come to [place] in part b/c of THC but wanted to leave [place]. i/j impaired. not interested in attending many gps. plan: cont invega and zoloft. may need incr invega. plan IM once more stable. on [facility]. 04/28/17 13:58 slept 9.5hr. often heard conversing with self in room loudly. isolating in room , some patients thought he was new today. kept head down during interview. low/soft vol of speech today. flattened affect , mood "disconnected...I like that, when I felt connected, I didn't like who I became". not giving any direct answers to any questions. rambling, with vague and poverty of content. didn't deny or endorse ah/vh but rambled about experiencing things differently than others, but everyone is different so each has different experiences..." "I looked around today, if this is housing in [place], I like it, it's nice here ". Consistently states he is NOT interested in returning to [place]. "I'm on my own path , something is guiding me, it's not my job to communicate with you". denies any SI or thoughts to harm others, denies depression "and when the tears flow, that's not depression, it's something deeper..." denied med s/e. PLAN: Did allow [facility] for program in [place]. discussed need to participate in milieu, start with 1 group daily (pending collateral). monitor for [place] 2 component may need behav plan cont current meds. on [facility], 04/29/17 15:11 late entry per staff, slept 7hrs. isolative, refused all meds today, wants to resume on cl[facility] and wants to find work. states tired of being here. pt doing yoga stretches in room, angry/irritable affect, "what are you gonna do ? I'm ready to leave. don't come in my room again!" refuses interview today. not attending gps but more visible in milieu, pacing up and down unit. head down while pacing, appears irritable. care coodinator contacted [facility] for more info (see note)- pt w/long hx SZP and subst use, would've been surprised if off meds and not psychotic. F will pay for bus back to [place] and residential facility will accept back, but pt refuses. pt had legal charges, threw chair at a tv, kept violating probation b/c subst use, and ended up in 1/2way house x 5-6yr, got off probation 1 yr ago but stayed at [address] house. ex /kids refuse contact. Plan: cont Invega, zoloft. on [facility]. health care law specialist contacting family for collateral. [facility] intake arranged for 05/02, not sure if will be ready for d/c by then. will need PPD as shelters are only option locally cc signed pt up for medicaid in [place]. Objective: Vital Signs Temp Pulse Resp BP Pulse Ox 36.4 C 74 16 121/83 H 98 04/30/17 05:53 04/30/17 05:53 04/30/17 05:53 04/30/17 05:53 04/30/17 05:53 - Time Spent With Patient Time Spent With Patient: 15min - Pending Discharge Pending Discharge Within 24 Hours: No Pending Discharge Within 48 Hours: No ICD10 Worksheet Patient Problems: Problems Problem Status Onset Cannabis use disorder, severe, dependence Acute Psychosis Acute Schizophrenia Acute Suicidal ideation Acute
--- NOTE | 2017-04-30 19:57 | SOAPPROG ---
SOAP Progress Note Assessment/Plan: Assessment: 46yo w/hx of SZP in resid tx/[facility] in [place] and on Clozaril/Zoloft for 6yr until left 2 wks ago by bus w/plan to move where THC was legal, and stopped in [place] (en route to [place]) 04/15. Psychotic and w/passive SI on admit, utox +thc. Also was off meds and decompensated. Started on Invega w/plan for Sustenna b/c unclear f/u and monitoring to be restarted on Clozapine. 04/26/17 15:08 slept 8.5hr. "dark mood" yesterday AM, better today. taking meds. reports no med s/e, no physical c/o. likes Invega. doesn't want clozapine and monitoring as in past. denied psychotic sxs. mood "good. sleeping "okay". nml speech rate/vol, cooperative, nml psychom activity, napping some today, inconsistently attending groups. trying to exercise some today b/c noted schroeder in his potato soup and doesn't usually eat meat but doesn't want change to vegetarian diet. asks to shave. denies any thoughts of self harm or harm to others. i/j fair. plan: cont invega 6mg, plan for sustenna. may need incr invega to 9mg. cont zoloft okay d/c SP so pt can shave w/supervision 04/27/17 18:17 slept 8.5hr. comfortably drinking coffee in pjs watching tv this am. reportedly indicated to staff he was comfortable in hosp b/c "this is my home now". had some illogical responses to questions. pt reports not feeling good today. "tired". wants "to smoke a bowl" now and he will be "less grouchy". clearly states he does NOT want to return to [place]. "I was in a bad place surrounded by bad people there...here too". regarding goals for hosp/treatment, pt responds that he prefers "a merciful here"... then rather his goal is "to take it in stride, try not to be judgmental or think too much. tried to ask some general personal questions and asked me to rather leave him and "go have a good day". "I don't know what y'all want from me...I should've a long time ago...I'm a tortured man". denied having any plan/intent to harm self. +passive SI. denied thoughts to harm others. no evid of resp to internal stim, and denied current ah/vh. laughed forcibly when concerns about THC and effects on MH expressed. "you think that's the problem?!" insists THC helps him, is not harmful, admits he did come to [place] in part b/c of THC but wanted to leave [place]. i/j impaired. not interested in attending many gps. plan: cont invega and zoloft. may need incr invega. plan IM once more stable. on [facility]. 04/28/17 13:58 slept 9.5hr. often heard conversing with self in room loudly. isolating in room , some patients thought he was new today. kept head down during interview. low/soft vol of speech today. flattened affect , mood "disconnected...I like that, when I felt connected, I didn't like who I became". not giving any direct answers to any questions. rambling, with vague and poverty of content. didn't deny or endorse ah/vh but rambled about experiencing things differently than others, but everyone is different so each has different experiences..." "I looked around today, if this is housing in [place], I like it, it's nice here ". Consistently states he is NOT interested in returning to [place]. "I'm on my own path , something is guiding me, it's not my job to communicate with you". denies any SI or thoughts to harm others, denies depression "and when the tears flow, that's not depression, it's something deeper..." denied med s/e. PLAN: Did allow [facility] for program in [place]. discussed need to participate in milieu, start with 1 group daily (pending collateral). monitor for [place] 2 component may need behav plan cont current meds. on [facility], 04/29/17 15:11 late entry per staff, slept 7hrs. isolative, refused all meds today, wants to [facility] at [facility] and wants to find work. states tired of being here. pt doing yoga stretches in room, angry/irritable affect, "what are you gonna do ? I'm ready to leave. don't come in my room again!" refuses interview today. not attending gps but more visible in milieu, pacing up and down unit. head down while pacing, appears irritable. care coodinator contacted F for more info (see note)- pt w/long hx SZP and subst use, would've been surprised if off meds and not psychotic. F will pay for bus back to [place] and residential facility will accept back, but pt refuses. pt had legal charges, threw chair at a tv, kept violating probation b/c subst use, and ended up in 1/2way house x 5-6yr, got off probation 1 yr ago but stayed at [address] [place]. ex /kids refuse contact. Plan: cont Invega, zoloft. on ST. certified social workers in health care contacting family for collateral. [facility] intake arranged for 05/02, not sure if will be ready for d/c by then. will need PPD as shelters are only option locally cc signed pt up for medicaid in [place]. 04/30/17 19:30 per staff, slept 5hrs. not attending gps, took meds this am. adamant about not wanting to return to [place]. states he feels safer here than where he lived before. resumed taking psych meds "b/c I thought it was for the best...good to take meds now, b/c I didn't want to end up in the quiet room...(in the past) that happened and they gave me shots" mse: casually dressed, goatee, decr eye contact, irritable. reserved. increasing agitation with continued interview, seeming to feel overstimulated with questions. less physically agitated than yesterday's pacing, tp- rambling, vague, denied current si/hi and denied ah but reports occasional vh of patterns , i/j impaired. plan: need to follow behav plan to attend gps and would like pt to be incr visible in milieu. monitor for safety given his hx as noted above from cc note [facility] to [facility] when psych ready Agreed to start on Invega Sustenna. cont invega 03/01 and zoloft for now Will try to contact outpt psychiatrist/prescriber for collateral- pt doesn't know name, states he was being given meds dispensed from a blister pack so he didn't know pharmacy. perhaps can get info of prescriber from Clozapine registry ? Objective: Vital Signs Temp Pulse Resp BP Pulse Ox 36.4 C 74 16 121/83 H 98 04/30/17 05:53 04/30/17 05:53 04/30/17 05:53 04/30/17 05:53 04/30/17 05:53 - Time Spent With Patient Time Spent With Patient: 25min - Pending Discharge Pending Discharge Within 24 Hours: No Pending Discharge Within 48 Hours: No ICD10 Worksheet Patient Problems: Problems Problem Status Onset Cannabis use disorder, severe, dependence Acute Psychosis Acute Schizophrenia Acute Suicidal ideation Acute
[2017-05-01] MEDS: SERTRALINE HCL 25 MG TAB PO SCH (10:41)
[2017-05-01] MEDS: PALIPERIDONE 3 MG TAB.ER PO SCH ×2 (10:42→20:19)
[2017-05-01] MEDS: MULTIVITAMINS 1 EACH TAB PO SCH (10:42)
--- NOTE | 2017-05-01 14:11 | SOAPPROG ---
SOAP Progress Note Assessment/Plan: Assessment: Patient with schizophrenia, very guarded, stand offish, wanting to be left alone. He cut off the interview early becasue he was becoming annoyed with this proposal manager writer. He later came out to asked this proposal manager writer to "take it somewhere else" when he suspected this proposal manager writer was purposely trying to do something to him. "You know what you're doing." At the time, this proposal manager writer was talking to another patient at a table attached to a wall outside [facility] room. The other patient was starting to get loud in his excitement about what he was talking about. Plan: Will continue current medications and treatment. 05/01/17 14:06 05/01/17 14:32 05/01/17 14:32 Subjective: When asked why he is here, "You know I can't answer that." He does know he is on Zoloft and Invega, and he feels he is doing well on them. He denies depression, suicidal, of homicidal thoughts. He reports his thoughts being "loud ," but he denies having voices. He does report "hallucinating" when he takes off his glasses. He sees thing that "you probably don't see." "they have been talking about individuality since I have been her." I like to keep to myself. He doesn't believe that his going into and out of the hospital is in his control. Objective: Vital Signs Temp Pulse Resp BP Pulse Ox 36.6 C 81 14 124/66 H 95 05/01/17 06:00 05/01/17 06:00 05/01/17 06:00 05/01/17 06:00 05/01/17 06:00 male, appropriately dressed and groomed, sitting on his bed. Good eye contact. Speech- Paucity, long pauses. Mood- "Wonderful. It's great." Affect- Euthymic. Thought Process- ?Thought blocking. Thought Content - Denies SI/HI. Denies AH.VH. Insight - Poor. Judgment - Fair. - Time Spent With Patient Time Spent With Patient: 15 - Pending Discharge Pending Discharge Within 24 Hours: No Pending Discharge Within 48 Hours: No ICD10 Worksheet Patient Problems: Problems Problem Status Onset Cannabis use disorder, severe, dependence Acute Psychosis Acute Schizophrenia Acute Suicidal ideation Acute
[2017-05-02] MEDS: MULTIVITAMINS 1 EACH TAB PO SCH (08:45)
[2017-05-02] MEDS: PALIPERIDONE 3 MG TAB.ER PO SCH ×2 (08:46→20:27)
[2017-05-02] MEDS: SERTRALINE HCL 25 MG TAB PO SCH (08:46)
--- NOTE | 2017-05-02 13:29 | SOAPPROG ---
SOAP Progress Note Assessment/Plan: Assessment: Patient with schizophrenia, very guarded, stand offish, wanting to be left alone. He again cut off the interview early because he was becoming annoyed. He denies depression. He is complaint with his medications that he doesn't believe benefit him. His insight and judgment are fair. Plan: Will continue current medications and treatment. Encourage participation in groups. 05/01/17 14:06 05/01/17 14:32 05/01/17 14:32 05/02/17 13:21 05/02/17 13:23 05/02/17 13:33 Subjective: He reports his sleep was good, His bowel movements are fine. His appetite is fine. He has "mild hallucinations" of colors, patterns, light, and "differentiation between dark and light." He does not find the hallucinations distressing. He denies side effects from the medications. Benefits of medications-"I can't really tell, you know." He reports he will continue taking the medications in the community. He was asked about what occurred the previous day, and he replied, "It's a new day. We don't have to rehash anything." He was asked if this property underwriter had done something wrong yesterday. He replied, "No, I'm just a total lunatic obviously. " Depression - none. Anxiety - None. Objective: Vital Signs Temp Pulse Resp BP Pulse Ox 37.3 C 80 12 119/92 H 95 05/02/17 04:56 05/02/17 04:56 05/02/17 04:56 05/02/17 04:56 05/02/17 04:56 male dressed in PJs, pacing the hallway when approached to sit down and talk. Relaxed sitting in a chair, poor eye contact. Speech- terse replies. Mood- Good." Affect- Flat, incongruent. Thought Process- Poverty of thought. Thought Content - No SI/HI. Denies AH/VH. Insight and Judgment - fair. - Time Spent With Patient Time Spent With Patient: 15 - Pending Discharge Pending Discharge Within 24 Hours: No Pending Discharge Within 48 Hours: No ICD10 Worksheet Patient Problems: Problems Problem Status Onset Cannabis use disorder, severe, dependence Acute Psychosis Acute Schizophrenia Acute Suicidal ideation Acute
[2017-05-02] MEDS: EPSOM SALT 454 GM TP SCH ×3 (16:47→21:07)
[2017-05-03] MEDS: PALIPERIDONE 3 MG TAB.ER PO SCH ×2 (08:50→20:39)
[2017-05-03] MEDS: SERTRALINE HCL 100 MG TAB PO SCH (08:51)
[2017-05-03] MEDS: MULTIVITAMINS 1 EACH TAB PO SCH (08:51)
[2017-05-03] MEDS: EPSOM SALT 454 GM TP SCH ×3 (08:55→21:26)
--- NOTE | 2017-05-03 15:57 | SOAPPROG ---
SOAP Progress Note Assessment/Plan: Assessment: Patient with schizophrenia more open today. His psychosis is more evident now that he is more willing to talk. He is having trouble reality testing. He left the interview early after being told he would not be able to shave today. His insight and judgment are fair. Plan: Will continue current medications and treatment except will add Zyprexa for his continued psychosis. He previously required Clozaril; therefore, he may need it again. Polypharmacy appears appropriate at this time given his continued psychosis. Encourage participation in groups. 05/01/17 14:06 05/01/17 14:32 05/01/17 14:32 05/02/17 13:21 05/02/17 13:23 05/02/17 13:33 05/03/17 15:54 05/03/17 16:09 Subjective: "Di you expect anything to change from yesterday" "Kind of feel like I'm ready to leave." He reports he is "definitely not feeling good." He feels bad. "Whatever my brain and my body is doing makes me feel bad." "Depression, I'm getting sick of these psycho-clinical terms. Depression, you know." His reply when asked to rate his depression. He doesn't know anymore if he is really in a psychiatric facility. "Everyone doesn't feel real. Even you don't feel real." "Everyone comes from a position of vanity. I'm not going to fall into that trap anymore." He reports he can't sleep. He doesn't fell rested. "I feeling down, and no one will let me..." He feels he can't do much of anything. He has put all his energy into keeping his nice room clean. Even in this room that he finds soothing, he feels tired and drained. He noticed the artificial plant in front of him. "The plants aren't real. they are probably artificial." After touching it, he surmises it isn't real. "If you are a doctor, can I shave?" When asked why he thought I might not be a doctor, he replied, "Because you voice changes and you seem like an actress like everyone around here." Objective: Vital Signs Temp Pulse Resp BP Pulse Ox 36.9 C 75 14 129/92 H 93 05/03/17 05:15 05/03/17 05:15 05/03/17 05:15 05/03/17 05:15 05/03/17 05:15 male, appropriately dressed, relaxed sitting in a chair. Poor eye contact. Speech- Hyperverbal. Mood- "Definitely not good." Affect- Angry. Thought Process- Tangential. Thought Content - No SI/HI. Unable to access if experiencing AH or VH. +delusional. - Time Spent With Patient Time Spent With Patient: 25 - Pending Discharge Pending Discharge Within 24 Hours: No Pending Discharge Within 48 Hours: No ICD10 Worksheet Patient Problems: Problems Problem Status Onset Cannabis use disorder, severe, dependence Acute Psychosis Acute Schizophrenia Acute Suicidal ideation Acute
[2017-05-03] MEDS: OLANZapine DISINTEGR 5 MG TAB PO PRN (17:57)
[2017-05-03] MEDS: OLANZapine DISINTEGR 10 MG TAB PO SCH (20:40)
[2017-05-04] MEDS: EPSOM SALT 454 GM TP SCH ×3 (08:37→21:04)
[2017-05-04] MEDS: MULTIVITAMINS 1 EACH TAB PO SCH (08:37)
[2017-05-04] MEDS: SERTRALINE HCL 100 MG TAB PO SCH (08:38)
[2017-05-04] MEDS: PALIPERIDONE 3 MG TAB.ER PO SCH ×2 (08:38→21:03)
--- NOTE | 2017-05-04 13:33 | SOAPPROG ---
SOAP Progress Note Assessment/Plan: Assessment: Patient with schizophrenia more engaged with peers. Refusing groups. Refused to meet with this fha underwriter. Rambling about the movie Friday. Remains psychotic. His is poor today. Plan: Will continue current medications and treatment except will add Zyprexa for his continued psychosis. He previously required Clozaril; therefore, he may need it again. Polypharmacy appears appropriate at this time given his continued psychosis. Encourage participation in groups. 05/01/17 14:06 05/01/17 14:32 05/01/17 14:32 05/02/17 13:21 05/02/17 13:23 05/02/17 13:33 05/03/17 15:54 05/03/17 16:09 05/04/17 13:29 05/04/17 13:32 05/04/17 13:34 Subjective: "We are alright I think." Patient's response when asked to meet with this fha underwriter. Reported something said by this fha underwriter reminded him of the mother in Friday. Objective: Vital Signs Temp Pulse Resp BP Pulse Ox 36.6 C 68 14 132/80 H 95 05/04/17 06:00 05/04/17 06:00 05/04/17 06:00 05/04/17 06:00 05/04/17 06:00 male, appropriately dressed and groomed. Fair eye contact. Dismissive. Speech - Rambling. Mood- Calm. Affect- bright. Thought Process- Tangential. Thought Content - No SI/HI. - Time Spent With Patient Time Spent With Patient: 14 - Pending Discharge Pending Discharge Within 24 Hours: No Pending Discharge Within 48 Hours: No ICD10 Worksheet Patient Problems: Problems Problem Status Onset Cannabis use disorder, severe, dependence Acute Psychosis Acute Schizophrenia Acute Suicidal ideation Acute
[2017-05-04] MEDS: OLANZapine DISINTEGR 10 MG TAB PO SCH (21:03)
[2017-05-05] MEDS: LORazepam 0.5 MG TAB PO PRN (02:01)
[2017-05-05] MEDS: OLANZapine DISINTEGR 5 MG TAB PO PRN (02:01)
[2017-05-05] MEDS: SERTRALINE HCL 100 MG TAB PO SCH (08:53)
[2017-05-05] MEDS: PALIPERIDONE 3 MG TAB.ER PO SCH (08:53)
[2017-05-05] MEDS: MULTIVITAMINS 1 EACH TAB PO SCH (08:53)
[2017-05-05] MEDS: EPSOM SALT 454 GM TP SCH ×3 (08:54→22:21)
--- NOTE | 2017-05-05 13:01 | SOAPPROG ---
SABRINA Progress Note Assessment/Plan: Assessment: x 04/21/17 15:29 Plan: 1. Start patient on Invega 3mg PO daily for psychosis. He was previously taking Clozaril, but given that he is traveling and homeless, does not warrant the risk of prescribing this med if patient won't have reliable way to get bloodwork checked. He agrees to PO Invega which he has taken in past and says was helpful. Plan will be to convert to Invega Sustenna eventually as more appropriate way to maintain him as outpatient with less risk than Clozaril. Patient does not give a sufficient history to warrant concluding that he has failed all other forms of antipsychotic tx. 2. Will also restart patient on Zoloft which he says he was taking up until time he was admitted to [facility]. He says he left his pill bottle at [facility] in [place], and doesn't know the dose of Zoloft he was taking. Will try to confirm and increase dose if needed. 3. Despite having a stable residential milieu in [place] for the past 6 years, patient says he started smoking THC about a year ago and decided he like the way it made him feel better than his psych meds, which is why he decided to travel to [place] b/c the weed was "better." Have advised patient of risks associated with use of THC which is a hallucinogen and particularly problematic for patient's with prior h/o psychosis and/or mood disorders. He says he still intends to smoke THC and doesn't want [place] back [place] b/[place] it's "illegal" and he 's tired of sneaking around and hiding his THC use. 4. Recommend [place] return to [place] where [place] stable environment and established mental health services. But he refuses. Request CC to provide him with in-state resources. 04/22/17 14:46 Plan: 1. Continue on Invega. Patient says he had no SE's from first dose this AM. 2. Will increase Zoloft to 100mg daily. Patient says he was taking 150mg daily and did not miss any doses prior to his admission in hospital. He may be experiencing some w/d sxs from starting at a much lower dose. 3. Patient says he was taking xanax in [place] and that he brought a bottle with him on bus. He isn't very clear about when his last dose was. He thinks it might have been on 04/16/17 and he doesn't actually remember how many tabs he was taking. 4. Will start a CIWA for benzo w/d just to be cautious. 5. Place patient on STC. 04/23/17 12:22 Plan: 1. Increase Invega to 6mg 2. Ciwa was 8 this AM (for agitation and anxiety for yelling at nurse). VSS. Patient denies any physical sxs of w/d. 04/24/17 13:05 Plan: 1. CCM - patient reprorts feeling "much better" today. He looks calmer and presents less agitated and restless. 2. Denies any sxs of w/d and VSS. 04/25/17 13:16 Plan: 1. Will d/c CIWA as patient has not been scoring and VS remain stable. 2. Continue Invega 6mg for psychosis 3. Will start Zoloft for mood since patient has taken this antidepressant in past and says it was helpful 05/05/17 12:56 1. Patient has been getting 6mg Invega in AM and 3mg Invega at HS since 04/28/[address] Padgett. Will change to 9mg PO daily as this med should be administered once daily. 2. Will order Invega Sustenna 234mg IM once tomorrow. Patient will need second injection of 156mg IM in 7 days. MD discussed r/b/se's of medication and WHEAT, answered patient's questions and patient gave his consent. 3. Patient is "100% sure" he wants to return to [facility] residential facility in [place]. Michael MONIQUE, has spoken with patient's FOC who wired him $500 for bus ticket to return to [place]. CC is waiting for confirmation from [facility] that patient can return to their facility. 4. Patient can receive 2nd injection once he returns to [place]. MD emphasized the importance of getting this dose on time. Patient assured MD that he would make it back to [place] in time. 5. Will d/c Zyprexa as there is no indication for taking 2 SGA's and the combination greatly increases risk of adverse effects. Subjective: Met with patient and discussed with staff. Patient presents much calmer, more thoughtful, less paranoid and more social than last time this MD saw him. He is walking out in milieu, participating in activities and eating meals with peers. When MD last saw him, he would rarely leave his room, had frequent paranoid, persecutory delusions and did not want to be around other people. He says he is "100% sure" he wants to return to [place] and live at his previous residential facility, [facility]. His FOC has already wired him $500 to buy a bus ticket. Patient says, "I'm so glad I have the Clozaril out of my system," he says he feels mentally more clear and has better mood. He says he wants to stay in hot in [place] "for a couple days" before returning to [place]. MD encouraged patient to return as quickly as possible in order to maintain continuity of care , receive his 2nd Sustenna injection on time, and to avoid any potentially negative consequences of a delay. Patient assures MD that he will not "get into any trouble" and will make it back to [place] in time for his f/u appts. He says, " If I tell my dad I'm going to do it, I'll keep my promise." Patient denies any SI/HI, no AH/VH. Objective: Vital Signs Temp Pulse Resp BP Pulse Ox 36.8 C 87 14 138/73 H 95 05/05/17 06:00 05/05/17 06:00 05/05/17 06:00 05/05/17 06:00 05/05/17 06:00 MSE: Wearing T-shirt, pants, glasses, bearded. Patient presents calmer, more pleasant and less agitated. Affect: Euthymic Mood: "Good" TP: Linear, goal- directed TC: Denies any paranoia, denies AH/VH, no evidence of int/ext stim, denies any SI/HI Insight/Judgment: Improved - Time Spent With Patient Time Spent With Patient: 25" - Pending Discharge Pending Discharge Within 24 Hours: No Pending Discharge Date: 05/08/17 (Patient needs to have f/u with [facility] in [place]) ICD10 Worksheet Patient Problems: Problems Problem Status Onset Cannabis use disorder, severe, dependence Acute Psychosis Acute Schizophrenia Acute Suicidal ideation Acute - ICD10 Problem Qualifiers (1) Psychosis Qualifiers: Psychosis type: schizophrenia Schizoaffective disorder type: S Schizophrenia type: paranoid schizophrenia Qualified Code(s): F20.0 - Paranoid schizophrenia (2) Cannabis use disorder, severe, dependence (3) Schizophrenia Qualifiers: Schizophrenia type: paranoid schizophrenia Qualified Code(s): F20.0 - Paranoid schizophrenia
[2017-05-05] MEDS: MAG HYDROX/AL HYDROX/SIMETH 30 ML UDCUP PO PRN (21:38)
[2017-05-06] MEDS: LORazepam 0.5 MG TAB PO PRN (00:13)
[2017-05-06] MEDS: PALIPERIDONE 3 MG TAB.ER PO SCH (08:14)
[2017-05-06] MEDS: SERTRALINE HCL 100 MG TAB PO SCH (08:14)
[2017-05-06] MEDS: MULTIVITAMINS 1 EACH TAB PO SCH (08:15)
[2017-05-06] MEDS ORDERED: PALIPERIDONE PALMITATE 234 MG/1.5 ML SYR IM ONE (09:00)
--- NOTE | 2017-05-06 12:41 | SOAPPROG ---
SABRINA Progress Note Assessment/Plan: Assessment: x 04/21/17 15:29 Plan: 1. Start patient on Invega 3mg PO daily for psychosis. He was previously taking Clozaril, but given that he is traveling and homeless, does not warrant the risk of prescribing this med if patient won't have reliable way to get bloodwork checked. He agrees to PO Invega which he has taken in past and says was helpful. Plan will be to convert to Invega Sustenna eventually as more appropriate way to maintain him as outpatient with less risk than Clozaril. Patient does not give a sufficient history to warrant concluding that he has failed all other forms of antipsychotic tx. 2. Will also restart patient on Zoloft which he says he was taking up until time he was admitted to [facility]. He says he left his pill bottle at [facility] in [place], and doesn't know the dose of Zoloft he was taking. Will try to confirm and increase dose if needed. 3. Despite having a stable residential milieu in [place] for the past 6 years, patient says he started smoking THC about a year ago and decided he like the way it made him feel better than his psych meds, which is why he decided to travel to [place] b/c the weed was "better." Have advised patient of risks associated with use of THC which is a hallucinogen and particularly problematic for patient's with prior h/o psychosis and/or mood disorders. He says he still intends to smoke THC and doesn't want to go back to [place] b/c it's "illegal" and he 's tired of sneaking around and hiding his THC use. 4. Recommend patient return to [place] where he has stable environment and established mental health services. But he refuses. Request CC to provide him with in-state resources. 04/22/17 14:46 Plan: 1. Continue on Invega. Patient says he had no SE's from first dose this AM. 2. Will increase Zoloft to 100mg daily. Patient says he was taking 150mg daily and did not miss any doses prior to his admission in hospital. He may be experiencing some w/d sxs from starting at a much lower dose. 3. Patient says he was taking [place]anax in [place] and that he brought a bottle with him on bus. He isn't very clear about when his last dose was. He thinks it might have been on 04/16/17 and he doesn't actually remember how many tabs he was taking. 4. Will start a CIWA for benzo w/d just to be cautious. 5. Place patient on STC. 04/23/17 12:22 Plan: 1. Increase Invega to 6mg 2. Ciwa was 8 this AM (for agitation and anxiety for yelling at nurse). VSS. Patient denies any physical sxs of w/d. 04/24/17 13:05 Plan: 1. CCM - patient reprorts feeling "much better" today. He looks calmer and presents less agitated and restless. 2. Denies any sxs of w/d and VSS. 04/25/17 13:16 Plan: 1. Will d/c CIWA as patient has not been scoring and VS remain stable. 2. Continue Invega 6mg for psychosis 3. Will start Zoloft for mood since patient has taken this antidepressant in past and says it was helpful 05/05/17 12:56 1. Patient has been getting 6mg Invega in AM and 3mg Invega at HS since 04/28/[address] Padgett. Will change to 9mg PO daily as this med should be administered once daily. 2. Will order Invega Sustenna 234mg IM once tomorrow. Patient will need second injection of 156mg IM in 7 days. MD discussed r/b/se's of medication and WHEAT, answered patient's questions and patient gave his consent. 3. Patient is "100% sure" he wants to return to [facility] residential facility in [place]. Michael MONIQUE, has spoken with patient's FOC who wired him $500 for bus ticket to return to [place]. CC is waiting for confirmation from [facility] that patient can return to their facility. 4. Patient can receive 2nd injection once he returns to [place]. MD emphasized the importance of getting this dose on time. Patient assured MD that he would make it back to [place] in time. 5. Will d/c Zyprexa as there is no indication for taking 2 SGA's and the combination greatly increases risk of adverse effects. 05/06/17 12:35 Plan: 1. Waiting for Invega Sustenna to arrive and be administered. 2. CC has confirmed with [facility] facility in [place] that they are willing to have patient return [place]. They [facility] [place] as soon as he arrives. They are aware that he will need second Invega Sustenna injection in 1 week. 3. FOC will f/u with son and make sure he gets his bus ticket [place]. 4. MD spent some time today educating patient on adverse effects of THC for individuals with mental illness, particularly psychosis. He was extremely resistant to the idea that THC has any negative effect on him. He said that he was smoking "up to 3 times a day" at [facility] and was "stable." MD reminded patient that he was admitted to [facility] b/c he was floridly psychotic and that was in large measure d/t his THC use. MD also pointed out that patient now admits he never should have left [facility] and MD indicated it was likely his ongoing use of TCH before he left [place] that influenced him to use bad judgment. 5. Will likely d/c tomorrow once receives his injection. Subjective: Met with patient and discussed with staff. Patient is very calm, pleasant, and cooperative. He still says he plans to use the money his FOC sent to buy a bus ticket and return to [place]. However, he tells psych MD, "I'll be honest with you, I don't like taking antipsychotics." But he admits that he feels better on Invega than he did on Clozaril. He says he feels his mind is clearer and not as "fuzzy-headed." MD encouraged patient to be compliant with meds, including getting his second Invega Sustenna injection in [place] in 1 week. MD encouraged patient to avoid using THC since it clearly had a negative effect on his judgment and his decision to leave [place] and come to [place], which he admits was a "mistake." It also led him to have serious relapse of psychotic sxs which led to his hospitalization. Patient denies any paranoia, delusions and denies SI/HI today. Objective: Vital Signs Temp Pulse Resp BP Pulse Ox 36.3 C 71 16 136/77 H 95 05/06/17 06:00 05/06/17 06:00 05/06/17 06:00 05/06/17 06:00 05/06/17 06:00 MSE: Wearing pajamas, shaved his dotson, still has goatee. Pleasant, cooperative. Affect: Euthymic Mood: "OK" TP: Linear, goal-directed TC: Denies AH/VH, paranoia, delusions and denies any SI/HI Insight/Judgment: Improving - Time Spent With Patient Time Spent With Patient: 25" - Pending Discharge Pending Discharge Within 24 Hours: Yes Pending Discharge Within 48 Hours: No Pending Discharge Date: 05/07/17 (After patient receives his IM Invega ) Pending Discharge Time: 12:00 ICD10 Worksheet Patient Problems: Problems Problem Status Onset Cannabis use disorder, severe, dependence Acute Psychosis Acute Schizophrenia Acute Suicidal ideation Acute - ICD10 Problem Qualifiers (1) Psychosis Qualifiers: Psychosis type: schizophrenia Schizoaffective disorder type: S Schizophrenia type: paranoid schizophrenia Qualified Code(s): F20.0 - Paranoid schizophrenia (2) Cannabis use disorder, severe, dependence (3) Schizophrenia Qualifiers: Schizophrenia type: paranoid schizophrenia Qualified Code(s): F20.0 - Paranoid schizophrenia
[2017-05-06] MEDS: EPSOM SALT 454 GM TP SCH ×3 (16:55→22:09)
[2017-05-06] MEDS: MAG HYDROX/AL HYDROX/SIMETH 30 ML UDCUP PO PRN (21:19)
[2017-05-07 06:24] VITALS: RESP 14
[2017-05-07] MEDS: SERTRALINE HCL 100 MG TAB PO SCH (09:07)
[2017-05-07] MEDS: MULTIVITAMINS 1 EACH TAB PO SCH (09:07)
[2017-05-07] MEDS: PALIPERIDONE 3 MG TAB.ER PO SCH (09:08)
[2017-05-07] MEDS: EPSOM SALT 454 GM TP SCH ×3 (10:39→21:19)
--- NOTE | 2017-05-07 13:44 | SOAPPROG ---
SABRINA Progress Note Assessment/Plan: Assessment: x 04/21/17 15:29 Plan: 1. Start patient on Invega 3mg PO daily for psychosis. He was previously taking Clozaril, but given that he is traveling and homeless, does not warrant the risk of prescribing this med if patient won't have reliable way to get bloodwork checked. He agrees to PO Invega which he has taken in past and says was helpful. Plan will be to convert to Invega Sustenna eventually as more appropriate way to maintain him as outpatient with less risk than Clozaril. Patient does not give a sufficient history to warrant concluding that he has failed all other forms of antipsychotic tx. 2. Will also restart patient on Zoloft which he says he was taking up until time he was admitted to [facility]. He says he left his pill bottle at [facility] in [place], and doesn't know the dose of Zoloft he was taking. Will try to confirm and increase dose if needed. 3. Despite having a stable residential milieu in [place] for the past 6 years, patient says he started smoking THC about a year ago and decided he like the way it made him feel better than his psych meds, which is why he decided to travel to [place] b/c the weed was "better." Have advised patient of risks associated with use of THC which is a hallucinogen and particularly problematic for patient's with prior h/o psychosis and/or mood disorders. He says he still intends to smoke THC and doesn't want to go back to [place] b/c it's "illegal" and he 's tired of sneaking around and hiding his THC use. 4. Recommend patient return to [place] where he has stable environment and established mental health services. But he refuses. Request CC to provide him with in-state resources. 04/22/17 14:46 Plan: 1. Continue on Invega. Patient says he had no SE's from first dose this AM. 2. Will increase Zoloft to 100mg daily. Patient says he was taking 150mg daily and did not miss any doses prior to his admission in hospital. He may be experiencing some w/d sxs from starting at a much lower dose. 3. Patient says he was taking xanax in [place] and that he brought a bottle with him on bus. He isn't very clear about when his last dose was. He thinks it might have been on 04/16/17 and he doesn't actually remember how many tabs he was taking. 4. Will start a CIWA for benzo w/d just to be cautious. 5. Place patient on STC. 04/23/17 12:22 Plan: 1. Increase Invega to 6mg 2. Ciwa was 8 this AM (for agitation and anxiety for yelling at nurse). VSS. Patient denies any physical sxs of w/d. 04/24/17 13:05 Plan: 1. CCM - patient reprorts feeling "much better" today. He looks calmer and presents less agitated and restless. 2. Denies any sxs of w/d and VSS. 04/25/17 13:16 Plan: 1. Will d/c CIWA as patient has not been scoring and VS remain stable. 2. Continue Invega 6mg for psychosis 3. Will start Zoloft for mood since patient has taken this antidepressant in past and says it was helpful 05/05/17 12:56 1. Patient has been getting 6mg Invega in AM and 3mg Invega at HS since 04/28/[address] Padgett. Will change to 9mg PO daily as this med should be administered once daily. 2. Will order Invega Sustenna 234mg IM once tomorrow. Patient will need second injection of 156mg IM in 7 days. MD discussed r/b/se's of medication and WHEAT, answered patient's questions and patient gave his consent. 3. Patient is "100% sure" he wants to return to [facility] residential facility in [place]. Michael MONIQUE, has spoken with patient's FOC who wired him $500 for bus ticket to return to [place]. CC is waiting for confirmation from [facility] that patient can return to their facility. 4. Patient can receive 2nd injection once he returns to [place]. MD emphasized the importance of getting this dose on time. Patient assured MD that he would make it back to [place] in time. 5. Will d/c Zyprexa as there is no indication for taking 2 SGA's and the combination greatly increases risk of adverse effects. 05/06/17 12:35 Plan: 1. Waiting for Invega Sustenna to arrive and be administered. 2. CC has confirmed with [facility] facility in [place] that they are willing to have patient return CONNIE. They will arrange to pick him up from [facility] bus station in [place] as soon as he arrives. They are aware that he will need second Invega Sustenna injection in 1 week. 3. FOC will f/u with son and make sure he gets his bus ticket [place]. 4. MD spent some time today educating patient on adverse effects of THC for individuals with mental illness, particularly psychosis. He was extremely resistant to the idea that THC has any negative effect on him. He said that he was smoking "up to 3 times a day" at [facility] and was "stable." MD reminded patient that he was admitted to [facility] b/c he was floridly psychotic and that was in large measure d/t his THC use. MD also pointed out that patient now admits he never should have left [facility] and MD indicated it was likely his ongoing use of TCH before he left [place] that influenced him to use bad judgment. 5. Will likely d/c tomorrow once receives his injection. 05/07/17 13:39 Plan: 1. Still waiting to receive his first Invega Sustenna IM injection today. 2. Will likely d/c tomorrow AM. 3. Patient has his belongings here in hospital including his ID, so he will be able to collect his [id number] funds upon discharge. Subjective: Met with patient and discussed with staff. Patient is anxious to leave hospital CONNIE. He asked if he could leave tonight so he could go stay in a hotel. MD encouraged patient to talk to his FOC and make sure he can still pick up man the funds his FOC wired him upon discharge. RN confirmed that patient's guitar, shoes, and photo ID are here in his personal belongings, so patient shouldn't need to go to [place] tomorrow to get any belongings. That way, patient can just pick up man his wire transfer funds and use the RTD passes CC provided to go to bus station in [place]. MD has repeatedly encouraged patient to take first available bus and head directly to [place] where his family is waiting and where he has stable living situation at [facility]. Patient will alternately agree with this plan and other times state he wants a "few days to relax" in hotel and "feel like a normal human being." He denies any AH/VH, no paranoia, no delusions , no SI/HI. Objective: Vital Signs Temp Pulse Resp BP Pulse Ox 36.7 C 86 14 134/93 H 96 05/07/17 06:00 05/07/17 06:00 05/07/17 06:00 05/07/17 06:00 05/07/17 06:00 MSE: Wearing pajamas and t-shirt, holding yellow tennis ball in his hands. Affect: Euthymic Mood: "Good" TP: Linear, goal-directed TC: Denies any AH/VH , paranoia, delusions, no SI/HI Insight/judgment: Poor - Time Spent With Patient Time Spent With Patient: 25" - Pending Discharge Pending Discharge Within 24 Hours: Yes Pending Discharge Date: 05/08/17 (Once patient has received his Invega Sustenna injection) Pending Discharge Time: 09:00 ICD10 Worksheet Patient Problems: Problems Problem Status Onset Cannabis use disorder, severe, dependence Acute Psychosis Acute Schizophrenia Acute Suicidal ideation Acute - ICD10 Problem Qualifiers (1) Psychosis Qualifiers: Psychosis type: schizophrenia Schizoaffective disorder type: S Schizophrenia type: paranoid schizophrenia Qualified Code(s): F20.0 - Paranoid schizophrenia (2) Cannabis use disorder, severe, dependence (3) Schizophrenia Qualifiers: Schizophrenia type: paranoid schizophrenia Qualified Code(s): F20.0 - Paranoid schizophrenia
[2017-05-07] MEDS ORDERED: PALIPERIDONE PALMITATE 234 MG/1.5 ML SYR IM ONE (14:00)
[2017-05-08] MEDS: ACETAMINOPHEN 500 MG TAB PO PRN (05:42)
[2017-05-08 05:47] VITALS: BP 118/75; PULSE 67; TEMP 98.4; O2SAT 95
[2017-05-08] MEDS: EPSOM SALT 454 GM TP SCH (08:28)
[2017-05-08] MEDS: PALIPERIDONE 3 MG TAB.ER PO SCH (08:29)
[2017-05-08] MEDS: MULTIVITAMINS 1 EACH TAB PO SCH (08:29)
[2017-05-08] MEDS: SERTRALINE HCL 100 MG TAB PO SCH (08:29)
--- NOTE | 2017-05-08 14:24 | BDS ---
[f rep st] BEHAVIORAL HEALTH DISCHARGE SUMMARY REASON FOR ADMISSION: Patient is a 46-year-old homeless man brought in by the [place] police on an M1 hold, after they found him lying near the hill in [place]. According to TLC evaluation, [place] police found him on the ground saying "I am speaking with God and hurting myself to understand Dev . Are you a buffer copper, would you kill me?" In the ED, he was extremely erratic between refusing to talk and keeping himself under the sheet in the ER, then charging out of bed at the water service dispatcher and shoutin g "You are not pretty, you hate men, you know we like the pretty ones." The patient had been seen in the [facility] ED 3 days earlier, requesting a referral to outpatient psychiatry, yael pepe he was from [place] and that he was on medications for schizoaffective disorder. He did have a several week supply of his medications, including clozaril, and was at that time referred to the w alk-in clinic at [facility], and was sent by taxi from the ED, not meeting criteria for an M1 hold. ADMISSION DIAGNOSES: 1. Schizoaffective disorder, bipolar type. 2. Cannabis use disorder, moderate to severe. 3. Psychosocial stressors include homeless, on Social Security disability, no support system, chron ic mental illness, and substance abuse. PHYSICAL EXAMINATION: Was performed by Dr. Cristiano Urrutia, please see his H and P for details. ADMISSION LABS: White cell count 11.72, hemoglobin 15.1, hematocrit 42.7, platelet count 253. Sodi um was 139, potassium was 3.7, chloride was 105, BUN was 19, creatinine was 0.9, glucose was 113, ca lcium 9.9. His salicylates and acetaminophen were both undetected. His urine drug screen was posit jake for both benzos and for marijuana. His blood alcohol level was less than 10. HOSPITAL COURSE: This MD assumed care of this client on his 2nd day inpatient, on 04/21/2017, met w ith patient, reviewed the chart, and discussed with the staff. The patient reports a long history o f mental health treatment. His first psych admission was at [facility] in 2003. He re ports being on court-ordered medications at that time. Since then, he has lived in an apartment in [place], [place], and participated in the GAIN program of daily group therapy, and med manageme nt. He transitioned from that to a residential treatment facility called [facility] in [facility], where he has lived for the past 6 years. He says about a year ago he started smoking mariju david and thought it was "really good for my head and everything." He noted that he felt much better on THC than on his psych medications. He was "able to play my guitar" and felt he had more energy o n THC. He says clozaril made him feel like a zombie, so he decided to travel to [place] because he heard it was "really cool" and "pot was legal there." He stopped in [place] because he was feeling sick on the bus and had good memories of living in [place] in the past. He says he likes [place] because "the pot is really good here", not like [place]. He thinks he will stay in [place] because of the "good vibes" and "really good weed." He denies any current auditory or visual hallucination s. There are no signs of paranoia or delusions. No evidence of responding to internal external sti muli. He denies any SIHI. MD discussed options for psych medications and suggested starting Invega and eventually getting on a long-acting injectable Sustenna. The patient said he has taken Invega in the past and says it was "a good medicine." He is very ambivalent about his desire to remain on psych medications, but says he will take Invega and Zoloft, which he was on prior to coming to [facility]. On April 21, 2017, the patient was started on Invega 3 mg p.o. daily for psychosis. He had pre viously been taking clozaril, but given that he is traveling and homeless, does not warrant the risk of prescribing this medication if the patient will not have a reliable way to get blood work checke d. He agrees to p.o. Invega. PLAN OF TREATMENT: The plan will be to convert him to Invega Sustenna eventually as a more appropri ate way to maintain him as an outpatient, with less risk than clozaril. Will restart the patient on Zoloft as well. The patient was started on 100 mg of Zoloft and he was titrated up to 9 mg of Inve ga p.o. and was given his 1st injection of Invega Sustenna 234 mg p.o. IM on 05/07/2017, with a plan to follow up for his 2nd dose in 1 week to complete the initial titration of long-acting injectable form. At that time, he was told he can discontinue the p.o. medications, and supposedly he will be followed by the providers at his snf in [facility]. Prior to discharge, the administrator health care facility, Michael, did speak with the staff at [facility], and they said that they were i nterested in having him return, that he had a bed there and he could stay, and he could resume recei ving his outpatient mental health treatment with them. They said they would be able to give him his 2nd dose of this Sustenna injection, and that they would discuss with him the option of going back on clozaril or staying on Invega, depending upon how well the patient responded to the medication. P rior to discharge, the MD spent a fair amount of time educating the patient on the adverse affects o f marijuana for individuals with mental illness, particularly psychosis. He was extremely resistant to the idea that THC has any negative effect on him; he said that he was smoking "up to 3 times a d ay" at [facility] and felt "stable." MD reminded the patient that he was admitted to [facility] because he was floridly psychotic, and that that was in large measure due to his mariju david use. also pointed out that the patient now admits he never should have left [facility], and the MD indicated it was likely his ongoing use of THC before he left [place] that influenced his ba d judgment. gsa coordinator, Michael, has been in contact with the patient's father who lives in [facility]. Father agreed to wire the patient 500 dollars, and the patient was provided with 2 RTD passe s to go directly from the hospital to the [facility] [employer] station in [place], where he will use the mon ey his father sent to buy him a bus ticket and return to [place]. He will be [facility] [place] by staff from [facility], and they will transport him to the residential facility. CONDITION ON DISCHARGE: Condition on discharge is stable. Patient's affect is euthymic, he is opti mistic and hopeful about returning to [place], where he has a better support system. DISCHARGE MEDICATIONS: He was given Invega 9 mg p.o. daily 30 tablets, and he was given Zoloft 100 mg 30 tablets with no refills. The patient had a prescription for Ativan 0.5 mg p.o. twice daily p. r.n. 14 tablets, but he said that he did not need it and he declined the prescription. DISCHARGE DIAGNOSES: [place]: 1. Schizophrenia, paranoid type. 2. Cannabis use disorder, severe. 3. Psychosocial stressors include homeless, lack of social support, noncompliance with medications, substance use, traveling out of state. DISPOSITION: Patient left the hospital with RTD bus passes to get him to the [employer] in [place], and also to get him to the [facility] to scrap picker the wire transfer from his father. FOLLOWUP: The patient is to be met at the [facility] station in [place] by staff from [facility] residential facility, where they will transport him back to the snf for his long-term ca re. LEGAL COURSE: The patient was on a short-term certification which was terminated upon discharge. /[id number]
== END 2017-05-08 09:10 | disposition home or self-care (01) | DRG 885 ==
LOC: BBEH 21:10
PROVIDERS: ADMIT Specialist; ATTEND Specialist
DX: F25.0 Schizoaffective disorder, bipolar type (principal); F12.20 Cannabis dependence, uncomplicated; Z59.0 Homelessness
CPT/HCPCS: 80305; G0480; J2426